=== PATIENT | female | born 1960 | race Caucasian/White ===

== ENCOUNTER → 2018-08-09 | Outpatient (CLI) | payer OTHER ==
[~2018-08-09] MED LIST: ALBU90OI INH; AMOCLA875 PO; AMOX500 PO; AZAT50 PO; AZIT250 PO; Acidophilus La100 GM; BUTASPCAF PO; Bactrim Ds Tab1 EACH PO; CARI350 PO; CEPH500 PO; CIPR500 PO; CLON1 PO; CODGUAEL PO; CYCL10 PO; Caltrate 600600 MG PO; DOC250 PO; DOXY100 PO; DULO60 PO; FLUT.05NI; GABA100 PO; HORMONE PATCH; HYDACE10B PO; HYDACE5; HYDACE5 PO; HYDR1TAB94; IBUHYD; IBUP400 PO; IBUP600 PO; IBUP800 PO; KETO10 PO; LAVAP17G; LIDO2L MM; LIDO2L TOP; LORA.5 PO; LORA1 PO; Lialda1.2 GM PO; METR250 PO; METR500 PO; MULVIT PO; NITR100CA PO; Naprosyn500 MG PO; Norco 10-325 T1 EACH PO; OMEP40CA12 PO; ONDA4ODT MM; OXYACE5T PO; OXYACE7.5T PO; OXYC1TAB11; PRED20 PO; PRODEXEL PO; PROM25 PO; PROP10 PO; Prednisone20 MG PO; RXOXYACE PO; SULTRIDS PO; SUMA25 PO; TRAM50 PO; Zofran Odt4 MG SL
== END | disposition home or self-care (01) ==
LOC: LAB SHORT 12:36 → LAB EV 12:36
DX: J02.9 Acute pharyngitis, unspecified (principal)
CPT/HCPCS: 87070

== ENCOUNTER 2019-02-03 06:00 | Day surgery (SDC) | payer OTHER ==
[~2019-02-03] VITALS: Ht 159 cm; Wt 65.0 kg
[~2019-02-03 06:00] MED LIST changes: +CLIMARA1 EACH TOP; +Hair, Skin & N1 EACH PO; +OMEPRAZOLE20 MG PO; +VITAMIN D31000 UNI1 PO
--- NOTE | 2019-02-03 07:02 | NUR ---
Ambulatory in Day Surgery History, Chart, Medications and Allergies reviewed before start of procedure.Patient confirms NPO status and agrees with scheduled surgery. PT DID NOT TAKE CHL SHOWER PREOP. Lungs clear T/O to Auscultation. Zhou Paws warming BLANKET applied.
--- NOTE | 2019-02-03 17:23 | NUR ---
SHIFT SUMMARY S/P A&P REPAIR TODAY. VSS. PT REPORTS MORE PRESSURE IN THE VAGINAL AREA R/T TO VAGINAL PACKING AND CATHETER THAN ACTUAL PAIN. KPAD OFFERED FOR COMFORT. PT HAS BEEN RECEIVING 2 NORCO, IV TORADOL, AND 1MG IV DILAUDID FOR PAIN. PT HAS AMBULATED HALLWAY WITH SBA AND IS IN THE CHAIR. SHE REPORTS MORE COMFORT BEING IN THE CHAIR THAN THE BED. MARIO PAD CHANGED X1 FOR SMALL VAGINAL BLEEDING. GONZALES INTACT WITH CLEAR YELLOW URINE. IVF INFUSING PER ORDERS. PT IMTIAZ REG DIET AND REPORTS PASSING GAS. PT USES CALL LIGHT APPROPRIATELY.
[2019-02-04 03:48] LABS: BASOPHILS ABSOLUTE AUTO 0.03 K/mm3 (0.00-0.23); BASOPHILS PERCENT AUTO 0 % (0-2); EOSINOPHILS ABSOLUTE AUTO 0.01 K/mm3 (0.00-0.68); EOSINOPHILS PERCENT AUTO 0 % (0-6); Hematocrit 34.7 % (33.0-51.0); Hemoglobin 11.6 g/dL (11.5-16.0); IMMATURE GRAN ABSOLUTE AUTO 0.03 K/mm3 (0.00-0.10); IMMATURE GRAN PERCENT AUTO 0 % (0-1); LYMPHOCYTES PERCENT AUTO 24 % (21-46); MONOCYTES ABSOLUTE AUTO 0.97 K/mm3 (0.16-1.47); MONOCYTES PERCENT AUTO 8 % (4-13); Mean Corpuscular HGB 31.1 pg (26.0-34.0); Mean Corpuscular HGB Conc 33.4 g/dL (31.5-36.5); Mean Corpuscular Volume 93 fL (80-100); Mean Platelet Volume 10.1 fL (9.1-12.4); NEUTROPHILS ABSOLUTE AUTO 8.05 K/mm3 (1.96-9.15); NEUTROPHILS PERCENT AUTO 68 % (41-73); Platelet Count 223 K/mm3 (150-400); RDW Coefficient Variation 12.7 % (11.7-14.2); RDW Standard Deviation 43.9 fL (35.1-46.3); Red Blood Cell Count 3.73 M/mm3 (3.80-5.20); White Blood Cell Count 11.89 K/mm3 (4.00-11.30)
--- NOTE | 2019-02-04 07:13 | NUR ---
SUMMARY: POD 1 A&P REPAIR BY DR. NICANOR STAFFORD. VSS, AFEBRILE, TOLERATING PO, PASSING GAS. PAIN WELL CONTROLLED WITH TORDAL, 2 TABS NORCO 10/325, AND 1MG DILAUDID X3 OR 4 THIS SHIFT. PT UP IN ROOM, TOLERATED WELL. CHRISTIAN RUBI'Ritchie THIS AM, AWAIT PT VOID.
[2019-02-04] MEDS ORDERED: Norco 10-325 T1 EACH PO (09:30)
[2019-02-04] MEDS ORDERED: DOCU100 PO (09:30)
[2019-02-04] MEDS ORDERED: IBU800 MG PO (09:31)
[2019-02-04] MEDS ORDERED: MIRALAX17 GM PO (09:35)
--- NOTE | 2019-02-04 10:43 | NUR ---
DISCHARGE PT EDUCATED ON AND RECEIVED PRINTED DC INSTRUCTIONS AND VERBALIZED AN UNDERSTANDING. PT PAIN MANAGED WITH ORAL NORCO. AMBULATING HALLWAY INDEPENDENTLY. PT PASSING GAS. VOIDING WITHOUT DIFFICULTY. IMTIAZ REG DIET. IV DC'D. PT GATHERING ALL PERSONAL BELONGINGS AND WAITING FOR SIG OTHER TO COME PICK HER UP TO TAKE HER HOME.
== END 2019-02-04 10:51 | disposition home or self-care (01) ==
LOC: ORSCMMR 06:00 → ORD 07:30 → ORSCMMR 07:30 → SURS 09:43 → ORSCMMR 02-04 10:51 → ORD 03-03 09:00
PROVIDERS: Obstetrics & Gynecology
PROC: 0JQC0ZZ Repair Pelvic Region Subcutaneous Tissue and Fascia, Open Approach (ICD-10-PCS; principal; 2019-02-03 07:30)
DX: N81.11 Cystocele, midline (principal); N81.6 Rectocele; M79.7 Fibromyalgia; Z79.899 Other long term (current) drug therapy
CPT/HCPCS: 36415; 85025; A9270-GY; J0690; J1100; J1170; J1885; J2250; J2370; J2405; J2704; J2765; J3010; J7120

== ENCOUNTER → 2019-02-18 | Outpatient (CLI) | payer OTHER ==
[~2019-02-18] MED LIST changes: +DOCU100 PO; +IBU800 MG PO; +MIRALAX17 GM PO
[2019-02-19 06:43] LABS: Candida species (DNA Probe) Negative (NEGATIVE); G. vaginalis (DNA Probe) Positive (NEGATIVE); T. vaginalis (DNA Probe) Negative (NEGATIVE)
== END | disposition home or self-care (01) ==
LOC: LAB SHORT 15:20 → LAB 15:20
PROVIDERS: Obstetrics & Gynecology
DX: N76.0 Acute vaginitis (principal)
CPT/HCPCS: 87480; 87510; 87660

== ENCOUNTER → 2019-03-11 | Outpatient (CLI) | payer OTHER ==
[2019-03-11 15:34] LABS: BASOPHILS ABSOLUTE AUTO 0.05 K/mm3 (0.00-0.23); BASOPHILS PERCENT AUTO 1 % (0-2); EOSINOPHILS ABSOLUTE AUTO 0.19 K/mm3 (0.00-0.68); EOSINOPHILS PERCENT AUTO 3 % (0-6); Hematocrit 41.1 % (33.0-51.0); Hemoglobin 13.7 g/dL (11.5-16.0); IMMATURE GRAN ABSOLUTE AUTO 0.01 K/mm3 (0.00-0.10); IMMATURE GRAN PERCENT AUTO 0 % (0-1); LYMPHOCYTES PERCENT AUTO 38 % (21-46); MONOCYTES ABSOLUTE AUTO 0.49 K/mm3 (0.16-1.47); MONOCYTES PERCENT AUTO 7 % (4-13); Mean Corpuscular HGB Conc 33.3 g/dL (31.5-36.5); Mean Corpuscular Volume 93 fL (80-100); NEUTROPHILS ABSOLUTE AUTO 3.38 K/mm3 (1.96-9.15); NEUTROPHILS PERCENT AUTO 51 % (41-73); Platelet Count 246 K/mm3 (150-400); RDW Coefficient Variation 12.8 % (11.7-14.2); RDW Standard Deviation 43.7 fL (35.1-46.3); Red Blood Cell Count 4.42 M/mm3 (3.80-5.20); White Blood Cell Count 6.62 K/mm3 (4.00-11.30)
[2019-03-11 15:57] LABS: Alanine Aminotransfer (ALT/SGP 48 U/L (12-78); Albumin, Blood 3.6 g/dL (3.4-5.0); Alk Phos 120 U/L (40-126); Anion Gap 8 mmol/L (6-16); Aspartate Aminotrans (AST/SGOT 41 U/L (12-37); Bilirubin, Total 0.2 mg/dL (0.1-1.0); Blood Urea Nitrogen 7 mg/dL (8-24); Bun/Creatinine Ratio 10.3 (12.0-20.0); CO2, Blood 28 mmol/L (21-32); Calcium, Blood 8.4 mg/dL (8.5-10.1); Chloride, Blood 103 mmol/L (98-108); Creatinine, Blood 0.68 mg/dL (0.40-1.00); Globulin, Blood 3.5 g/dL (2.2-4.0); Glomerular Filtration Rate >60 (60-); Glucose, Blood 103 mg/dL (70-99); Potassium, Blood 3.7 mmol/L (3.5-5.5); Sodium, Blood 139 mmol/L (136-145); Total Protein, Blood 7.1 g/dL (6.4-8.2)
== END | disposition home or self-care (01) ==
LOC: LAB EV 15:30 → LAB SHORT 15:30
PROVIDERS: Physician Assistant
DX: R07.9 Chest pain, unspecified (principal); N39.0 Urinary tract infection, site not specified
CPT/HCPCS: 80053; 85025; 85379; 87086

== ENCOUNTER → 2019-04-08 | Outpatient (CLI) | payer OTHER ==
[2019-04-08 18:31] LABS: Bilirubin, Urine Neg (Neg); Blood, Urine Neg (Neg); Glucose Qualitative, Urine Neg (Neg); Ketones, Urine Neg (Neg); Leukocyte Esterase, Urine Neg (Neg); Nitrite, Urine Neg (Neg); Protein, Urine Neg (Neg); Urobilinogen, Urine NORM (Normal)
[2019-04-08 18:47] LABS: Appearance, Urine Clear (Clear); Color, Urine Yellow (P-Yellow)
[2019-04-09 06:22] LABS: Stool Occult Bld Immuno 1 Negative (NEGATIVE)
== END | disposition home or self-care (01) ==
LOC: LAB 06:00 → LAB SHORT 06:00
PROVIDERS: Internal Medicine
DX: Z12.11 Encounter for screening for malignant neoplasm of colon (principal); N39.0 Urinary tract infection, site not specified; R53.81 Other malaise
CPT/HCPCS: 81003; G0328

== ENCOUNTER → 2019-04-11 | Outpatient (CLI) | payer OTHER ==
[~2019-04-11] MED LIST changes: +Bentyl20 MG PO; +ESTRADIOL1 EAC1 TD; +MIRALAX17 GM; +MIRT15; +Multiple Vitam1 EACH PO
[2019-04-15 11:07] LABS: COMMENT: Comment: (.); M-SPIKE, % Not Observed % (Not Observed); PROTEIN,TOTAL,URINE 8.1 mg/dL (Not Estab.)
== END | disposition home or self-care (01) ==
LOC: LAB SHORT 08:50 → LAB 08:50
PROVIDERS: Internal Medicine
DX: Z00.01 Encounter for general adult medical examination with abnormal findings (principal)
CPT/HCPCS: 81050; 84156; 84166

== ENCOUNTER 2019-05-08 08:07 | Day surgery (SDC) | payer OTHER ==
[~2019-05-08] VITALS: Ht 157.5 cm; Wt 63.6 kg
--- NOTE | 2019-05-08 08:59 | NUR ---
05/08/19 0859 Claudia Regalado 1 TRY HAND RIGHT BLEW 2 TRY HAND RIGHT GOOD
--- NOTE | 2019-05-08 10:31 | NUR ---
05/08/19 1031 Jen Ash .5NS WITH 1CC SPOT MARKER INJECTED INTO SIGMOID COLON
--- NOTE | 2019-05-08 10:55 | NUR ---
05/08/19 1055 Jen Ash PT TEARFUL, COMPLAINING OF 10/10 HEADACHE UPON ARRIVAL TO SDU. PT STATES "IT'S LIKE THE WORST HEADACHE OF HER LIFE." 50MCG FENTANYL AND 30MG TORADOL GIVEN IV PER DR LOCKWOOD. PT STATES RELIEF POST MEDICATION INTERVENTION. PT STATES HEADACHE 6/10. PT CHATTING, RESTING IN BED AT THIS TIME. VSS.
== END 2019-05-08 11:14 | disposition home or self-care (01) ==
LOC: ORSCSDS 08:07
PROVIDERS: Student in an Organized Health Care Education/Training Program
PROC: 0DBN8ZX Excision of Sigmoid Colon, Via Natural or Artificial Opening Endoscopic, Diagnostic (ICD-10-PCS; principal; 2019-05-08 09:30)
PROC: 0DBL8ZX Excision of Transverse Colon, Via Natural or Artificial Opening Endoscopic, Diagnostic (ICD-10-PCS; principal; 2019-05-08 09:30)
DX: R10.9 Unspecified abdominal pain (principal); K52.9 Noninfective gastroenteritis and colitis, unspecified; D12.3 Benign neoplasm of transverse colon; K57.30 Diverticulosis of large intestine without perforation or abscess without bleeding; K64.8 Other hemorrhoids; K64.4 Residual hemorrhoidal skin tags; Z80.0 Family history of malignant neoplasm of digestive organs; E78.5 Hyperlipidemia, unspecified; Z79.899 Other long term (current) drug therapy
CPT/HCPCS: 88305; J1885; J2704; J3010; J7120

== ENCOUNTER → 2020-03-26 | Outpatient (CLI) | payer OTHER | END | disposition home or self-care (01) | LOC: LAB SHORT 17:39 → LAB EV 17:39 | DX: R53.83 Other fatigue (principal); Z20.828 Contact with and (suspected) exposure to other viral communicable diseases | CPT/HCPCS: 87086; U0003 ==

== ENCOUNTER 2020-07-07 17:45 | Emergency (ER) | payer OTHER ==
[~2020-07-07] VITALS: Ht 157.5 cm; Wt 69.0 kg
[2020-07-07 18:17] LABS: BASOPHILS ABSOLUTE AUTO 0.07 K/mm3 (0.00-0.23); BASOPHILS PERCENT AUTO 1 % (0-2); EOSINOPHILS PERCENT AUTO 1 % (0-6); Hematocrit 43.1 % (33.0-51.0); Hemoglobin 14.2 g/dL (11.5-16.0); IMMATURE GRAN ABSOLUTE AUTO 0.01 K/mm3 (0.00-0.10); IMMATURE GRAN PERCENT AUTO 0 % (0-1); LYMPHOCYTES ABSOLUTE AUTO 3.35 K/mm3 (0.84-5.20); LYMPHOCYTES PERCENT AUTO 39 % (21-46); MONOCYTES ABSOLUTE AUTO 0.67 K/mm3 (0.16-1.47); MONOCYTES PERCENT AUTO 8 % (4-13); Mean Corpuscular HGB 30.5 pg (26.0-34.0); Mean Corpuscular HGB Conc 32.9 g/dL (31.5-36.5); Mean Corpuscular Volume 93 fL (80-100); Mean Platelet Volume 9.5 fL (9.1-12.4); NEUTROPHILS PERCENT AUTO 52 % (41-73); Platelet Count 309 K/mm3 (150-400); RDW Coefficient Variation 12.5 % (11.7-14.2); RDW Standard Deviation 42.4 fL (35.1-46.3); Red Blood Cell Count 4.66 M/mm3 (3.80-5.20)
[2020-07-07 18:25] LABS: Source, Urine Voided
[2020-07-07 18:35] LABS: Appearance, Urine Hazy (Clear); Bilirubin, Urine Neg (Neg); Blood, Urine Neg (Neg); Color, Urine Yellow (P-Yellow); Glucose Qualitative, Urine Neg (Neg); Ketones, Urine Neg (Neg); Leukocyte Esterase, Urine Neg (Neg); Nitrite, Urine Neg (Neg); Protein, Urine Neg (Neg); Specific Gravity, Urine 1.015 (1.003-1.022); Urobilinogen, Urine NORM (Normal)
[2020-07-07 18:36] LABS: Alanine Aminotransfer (ALT/SGP 22 U/L (12-78); Albumin/Globulin Ratio 1.2 (0.8-1.8); Alk Phos 110 U/L (50-136); Anion Gap 5 mmol/L (6-16); Aspartate Aminotrans (AST/SGOT 17 U/L (12-37); Bilirubin, Total 0.3 mg/dL (0.1-1.0); Blood Urea Nitrogen 13 mg/dL (8-24); Bun/Creatinine Ratio 19.5 (12.0-20.0); CO2, Blood 28 mmol/L (21-32); Calcium, Blood 8.5 mg/dL (8.5-10.1); Chloride, Blood 104 mmol/L (98-108); Creatinine, Blood 0.67 mg/dL (0.40-1.00); Globulin, Blood 3.2 g/dL (2.2-4.0); Glomerular Filtration Rate >60 (60-); Glucose, Blood 83 mg/dL (70-99); Potassium, Blood 3.5 mmol/L (3.5-5.5); Sodium, Blood 137 mmol/L (136-145); Total Protein, Blood 7.2 g/dL (6.4-8.2); Troponin I <0.015 ng/mL (0.000-0.040)
[2020-07-07 18:47] LABS: Bacteria Mod /hpf; Red Blood Cells, Urine 0-2 /hpf (0-2); Squamous Epithelial Cells Mod /hpf (Few)
== END 2020-07-07 20:08 | disposition home or self-care (01) ==
LOC: ER 17:45
PROVIDERS: Emergency Medicine; Physician Assistant
DX: R07.2 Precordial pain (principal); R07.9 Chest pain, unspecified; Z87.891 Personal history of nicotine dependence
CPT/HCPCS: 36415; 71046; 80053; 81001; 84484; 85025; 85379; 87086; 93005; 93010; 99284-25

== ENCOUNTER 2020-08-12 18:19 | Emergency (ER) | payer OTHER ==
[~2020-08-12] VITALS: Ht 157.5 cm; Wt 65.8 kg
[2020-08-12 19:08] LABS: BASOPHILS ABSOLUTE AUTO 0.03 K/mm3 (0.00-0.23); BASOPHILS PERCENT AUTO 0 % (0-2); EOSINOPHILS ABSOLUTE AUTO 0.05 K/mm3 (0.00-0.68); EOSINOPHILS PERCENT AUTO 1 % (0-6); IMMATURE GRAN ABSOLUTE AUTO 0.02 K/mm3 (0.00-0.10); IMMATURE GRAN PERCENT AUTO 0 % (0-1); LYMPHOCYTES ABSOLUTE AUTO 2.21 K/mm3 (0.84-5.20); LYMPHOCYTES PERCENT AUTO 30 % (21-46); MONOCYTES ABSOLUTE AUTO 0.56 K/mm3 (0.16-1.47); MONOCYTES PERCENT AUTO 8 % (4-13); Mean Corpuscular HGB 30.2 pg (26.0-34.0); Mean Corpuscular HGB Conc 33.3 g/dL (31.5-36.5); Mean Corpuscular Volume 91 fL (80-100); Mean Platelet Volume 9.8 fL (9.1-12.4); NEUTROPHILS ABSOLUTE AUTO 4.46 K/mm3 (1.96-9.15); NEUTROPHILS PERCENT AUTO 61 % (41-73); Platelet Count 256 K/mm3 (150-400); RDW Coefficient Variation 12.6 % (11.7-14.2); RDW Standard Deviation 41.3 fL (35.1-46.3); Red Blood Cell Count 4.63 M/mm3 (3.80-5.20); White Blood Cell Count 7.33 K/mm3 (4.00-11.30)
[2020-08-12 19:27] LABS: Alanine Aminotransfer (ALT/SGP 17 U/L (12-78); Albumin/Globulin Ratio 1.2 (0.8-1.8); Alk Phos 93 U/L (50-136); Anion Gap 6 mmol/L (6-16); Aspartate Aminotrans (AST/SGOT 15 U/L (12-37); Bilirubin, Total 0.3 mg/dL (0.1-1.0); Blood Urea Nitrogen 10 mg/dL (8-24); Bun/Creatinine Ratio 13.8 (12.0-20.0); CO2, Blood 28 mmol/L (21-32); Calcium, Blood 8.8 mg/dL (8.5-10.1); Chloride, Blood 104 mmol/L (98-108); Creatinine, Blood 0.73 mg/dL (0.40-1.00); Globulin, Blood 3.4 g/dL (2.2-4.0); Glomerular Filtration Rate >60 (60-); Glucose, Blood 81 mg/dL (70-99); Potassium, Blood 3.8 mmol/L (3.5-5.5); Sodium, Blood 138 mmol/L (136-145); Total Protein, Blood 7.4 g/dL (6.4-8.2)
[2020-08-12 19:44] LABS: Source, Urine Clean Catch
[2020-08-12 19:50] LABS: Appearance, Urine Clear (Clear); Bilirubin, Urine Neg (Neg); Blood, Urine 2+ (Neg); Color, Urine Amber (P-Yellow); Glucose Qualitative, Urine Neg (Neg); Ketones, Urine 3+ (Neg); Leukocyte Esterase, Urine 1+ (Neg); Nitrite, Urine Neg (Neg); Protein, Urine 1+ (Neg); Specific Gravity, Urine 1.025 (1.003-1.022); Urobilinogen, Urine NORM (Normal)
[2020-08-12 19:59] LABS: Bacteria Many /hpf; Mucus Mod (0-Heavy); Red Blood Cells, Urine 0-2 /hpf (0-2); Squamous Epithelial Cells Mod /hpf (Few)
[2020-08-12] MEDS ORDERED: CEPH500 PO (21:46)
== END 2020-08-12 21:49 | disposition home or self-care (01) ==
LOC: ER 18:19
PROVIDERS: Physician Assistant
DX: N39.0 Urinary tract infection, site not specified (principal); Z79.899 Other long term (current) drug therapy; Z87.891 Personal history of nicotine dependence
CPT/HCPCS: 36415; 74176; 80053; 81001; 83690; 85025; 87086; 99284-25; A9270

== ENCOUNTER → 2021-08-23 | Outpatient (CLI) | payer OTHER ==
[2021-08-23 14:13] LABS: Source, Urine Clean Catch
[2021-08-23 15:33] LABS: Bilirubin, Urine Neg (Neg); Blood, Urine Neg (Neg); Glucose Qualitative, Urine Neg (Neg); Ketones, Urine Neg (Neg); Leukocyte Esterase, Urine Neg (Neg); Nitrite, Urine Neg (Neg); Protein, Urine 1+ (Neg); Urobilinogen, Urine NORM (Normal)
[2021-08-23 15:35] LABS: Appearance, Urine Hazy (Clear); Color, Urine Pale Yellow (P-Yellow); Red Blood Cells, Urine 0-2 /hpf (0-2); Squamous Epithelial Cells Rare /hpf (Few); White Blood Cells, Urine 0-2 /hpf (0-5)
[2021-08-23 15:36] LABS: Bacteria Few /hpf; Mucus Mod (0-Heavy)
== END | disposition home or self-care (01) ==
LOC: LAB SHORT 14:10
PROVIDERS: Obstetrics & Gynecology
DX: R32 Unspecified urinary incontinence (principal)
CPT/HCPCS: 81001; 87086

== ENCOUNTER 2021-08-25 11:55 | Emergency (ER) | payer OTHER ==
[~2021-08-25] VITALS: Ht 157.5 cm; Wt 63.0 kg
== END 2021-08-25 15:32 | disposition home or self-care (01) ==
LOC: ER 11:55
DX: H53.9 Unspecified visual disturbance (principal); Z79.899 Other long term (current) drug therapy; M19.90 Unspecified osteoarthritis, unspecified site; Z87.891 Personal history of nicotine dependence
CPT/HCPCS: 99283

== ENCOUNTER → 2021-10-06 | Outpatient (CLI) | payer OTHER ==
[2021-10-06 19:12] LABS: U Amphetamine Screen Not Detected; U Barbituate Screen Not Detected; U Benzodiazapine Screen Not Detected; U Buprenorphine Screen Not Detected; U Cannabinoids Screen Not Detected; U Cocaine Screen Not Detected; U Methadone Screen Not Detected; U Methamphetamine Screen Not Detected; U Opiates Screen Not Detected; U Oxycodone Screen DETECTED; U Phencyclidine Screen Not Detected; U Propoxyphene Screen Not Detected
== END | disposition home or self-care (01) ==
LOC: LAB SHORT 13:25 → LAB 14:30
PROVIDERS: Internal Medicine
DX: Z51.81 Encounter for therapeutic drug level monitoring (principal); Z79.891 Long term (current) use of opiate analgesic

== ENCOUNTER 2022-01-12 13:14 | Emergency (ER) | payer OTHER ==
[~2022-01-12] VITALS: Ht 157.5 cm; Wt 72.6 kg
== END 2022-01-12 16:04 | disposition home or self-care (01) ==
LOC: ER 13:14
DX: G89.18 Other acute postprocedural pain (principal); M79.645 Pain in left finger(s); M25.532 Pain in left wrist; Z87.891 Personal history of nicotine dependence; Z98.890 Other specified postprocedural states; Z79.899 Other long term (current) drug therapy; Z79.818 Long term (current) use of other agents affecting estrogen receptors and estrogen levels
CPT/HCPCS: 99282

== ENCOUNTER → 2023-03-12 | Outpatient (CLI) | payer OTHER ==
[2023-03-12 13:34] LABS: U Amphetamine Screen Not Detected; U Barbituate Screen Not Detected; U Benzodiazapine Screen Not Detected; U Buprenorphine Screen Not Detected; U Cannabinoids Screen Not Detected; U Cocaine Screen Not Detected; U Methadone Screen Not Detected; U Methamphetamine Screen Not Detected; U Opiates Screen Not Detected; U Oxycodone Screen DETECTED; U Phencyclidine Screen Not Detected; U Propoxyphene Screen Not Detected
== END | disposition home or self-care (01) ==
LOC: LAB SHORT 09:01 → LAB 09:01 → EDSTATUS 02-16 12:55 → LAB FUT 02-16 12:55
PROVIDERS: Internal Medicine
DX: Z51.81 Encounter for therapeutic drug level monitoring (principal); Z79.891 Long term (current) use of opiate analgesic

== ENCOUNTER 2023-09-02 10:03 | Emergency (ER) | payer OTHER ==
[~2023-09-02] VITALS: Ht 157.5 cm; Wt 70.6 kg
[2023-09-02 10:43] LABS: BASOPHILS ABSOLUTE AUTO 0.04 K/mm3 (0.00-0.23); BASOPHILS PERCENT AUTO 1 % (0-2); EOSINOPHILS ABSOLUTE AUTO 0.16 K/mm3 (0.00-0.68); EOSINOPHILS PERCENT AUTO 3 % (0-6); Hematocrit 39.7 % (33.0-51.0); Hemoglobin 13.2 g/dL (11.5-16.0); IMMATURE GRAN ABSOLUTE AUTO 0.01 K/mm3 (0.00-0.10); IMMATURE GRAN PERCENT AUTO 0 % (0-1); LYMPHOCYTES ABSOLUTE AUTO 1.53 K/mm3 (0.84-5.20); LYMPHOCYTES PERCENT AUTO 31 % (21-46); MONOCYTES ABSOLUTE AUTO 0.41 K/mm3 (0.16-1.47); MONOCYTES PERCENT AUTO 8 % (4-13); Mean Corpuscular HGB 30.3 pg (26.0-34.0); Mean Corpuscular HGB Conc 33.2 g/dL (31.5-36.5); Mean Corpuscular Volume 91 fL (80-100); Mean Platelet Volume 9.6 fL (9.1-12.4); NEUTROPHILS ABSOLUTE AUTO 2.79 K/mm3 (1.96-9.15); NEUTROPHILS PERCENT AUTO 57 % (41-73); Platelet Count 264 K/mm3 (150-400); RDW Coefficient Variation 13.3 % (11.7-14.2); RDW Standard Deviation 44.9 fL (35.1-46.3); Red Blood Cell Count 4.36 M/mm3 (3.80-5.20); White Blood Cell Count 4.94 K/mm3 (4.00-11.30)
[2023-09-02 10:58] LABS: Source, Urine Clean Catch
[2023-09-02 11:01] LABS: Appearance, Urine Hazy (Clear); Bilirubin, Urine Neg (Neg); Blood, Urine Neg (Neg); Color, Urine Yellow (P-Yellow); Glucose Qualitative, Urine Neg (Neg); Ketones, Urine Neg (Neg); Leukocyte Esterase, Urine 1+ (Neg); Nitrite, Urine Neg (Neg); Protein, Urine Neg (Neg); Specific Gravity, Urine 1.015 (1.003-1.022); Urobilinogen, Urine NORM (Normal); pH, Urine 6.5 (5.0-8.0)
[2023-09-02 11:10] LABS: Bacteria Few /hpf; Mucus Light (0-Heavy); Squamous Epithelial Cells Many /hpf (Few); Transitional Epithelial Cells Rare /hpf (0-Rare)
[2023-09-02] MEDS ORDERED: Percocet 10-321 EACH PO (11:10)
[2023-09-02] MEDS ORDERED: DULO60 (11:11)
[2023-09-02] MEDS ORDERED: DULO30 (11:11)
[2023-09-02 11:13] LABS: Albumin, Blood 3.6 g/dL (3.4-5.0); Albumin/Globulin Ratio 1.1 (0.8-1.8); Bilirubin, Total 0.5 mg/dL (0.1-1.0); Bun/Creatinine Ratio 16.5 (12.0-20.0); Calcium, Blood 8.8 mg/dL (8.5-10.1); Creatinine, Blood 0.67 mg/dL (0.40-1.00); Globulin, Blood 3.3 g/dL (2.2-4.0); Potassium, Blood 3.7 mmol/L (3.5-5.5); Total Protein, Blood 6.9 g/dL (6.4-8.2)
[2023-09-02] MEDS ORDERED: Ondansetron HCl 2 MG / ML 2ML Vial IV ONE (11:40)
[2023-09-02] MEDS ORDERED: FentaNYL Citrate 50 MCG/ML 2 ML Injection IV ONE ×2 (11:40→12:55)
[2023-09-02] MEDS ORDERED: NS 1,000 ML IV SCH (11:40)
[2023-09-02] MEDS ORDERED: OMEP20ER PO (12:08)
[2023-09-02] MEDS ORDERED: ONDA4ODT MM (12:08)
[2023-09-02 13:00] VITALS: BP 111/56
== END 2023-09-02 13:06 | disposition home or self-care (01) ==
LOC: ER 10:03
PROVIDERS: Physician Assistant
DX: R10.13 Epigastric pain (principal); Z79.899 Other long term (current) drug therapy; M19.90 Unspecified osteoarthritis, unspecified site; Z87.891 Personal history of nicotine dependence
CPT/HCPCS: 76705; 80053; 81001; 83690; 85025; 87086; 96361; 96374; 96375; 96376; 99284-25; J2405; J3010; J7030

== ENCOUNTER 2024-07-07 12:03 | Emergency (ER) | payer OTHER ==
[~2024-07-07] VITALS: Ht 157.5 cm; Wt 71.2 kg
[~2024-07-07 12:03] MED LIST changes: +DULO30; +DULO60; +OMEP20ER PO; +Percocet 10-321 EACH PO
[2024-07-07 12:58] VITALS: BP 125/68
[2024-07-07 13:37] LABS: BASOPHILS ABSOLUTE AUTO 0.05 K/mm3 (0.00-0.23); BASOPHILS PERCENT AUTO 1 % (0-2); EOSINOPHILS ABSOLUTE AUTO 0.32 K/mm3 (0.00-0.68); EOSINOPHILS PERCENT AUTO 6 % (0-6); Hematocrit 40.3 % (33.0-51.0); Hemoglobin 12.9 g/dL (11.5-16.0); IMMATURE GRAN ABSOLUTE AUTO 0.01 K/mm3 (0.00-0.10); IMMATURE GRAN PERCENT AUTO 0 % (0-1); LYMPHOCYTES PERCENT AUTO 37 % (21-46); MONOCYTES ABSOLUTE AUTO 0.53 K/mm3 (0.16-1.47); MONOCYTES PERCENT AUTO 9 % (4-13); Mean Corpuscular HGB 29.5 pg (26.0-34.0); Mean Corpuscular Volume 92 fL (80-100); Mean Platelet Volume 9.5 fL (9.1-12.4); NEUTROPHILS ABSOLUTE AUTO 2.65 K/mm3 (1.96-9.15); NEUTROPHILS PERCENT AUTO 47 % (41-73); Platelet Count 280 K/mm3 (150-400); RDW Coefficient Variation 13.8 % (11.7-14.2); RDW Standard Deviation 47.3 fL (35.1-46.3); Red Blood Cell Count 4.37 M/mm3 (3.80-5.20); White Blood Cell Count 5.66 K/mm3 (4.00-11.30)
[2024-07-07 14:00] LABS: Albumin, Blood 3.5 g/dL (3.4-5.0); Albumin/Globulin Ratio 1.1 (0.8-1.8); Bilirubin, Total 0.4 mg/dL (0.1-1.0); Bun/Creatinine Ratio 17.9 (12.0-20.0); Calcium, Blood 8.4 mg/dL (8.5-10.1); Creatinine, Blood 0.62 mg/dL (0.40-1.00); Globulin, Blood 3.3 g/dL (2.2-4.0); Potassium, Blood 4.3 mmol/L (3.5-5.5); Total Protein, Blood 6.8 g/dL (6.4-8.2)
[2024-07-07] MEDS ORDERED: AMOCLA875 PO (15:28)
== END 2024-07-07 15:31 | disposition home or self-care (01) ==
LOC: ER 12:03
PROVIDERS: Physician Assistant
DX: K57.33 Diverticulitis of large intestine without perforation or abscess with bleeding (principal); K50.90 Crohn's disease, unspecified, without complications; Z87.891 Personal history of nicotine dependence; Z79.899 Other long term (current) drug therapy
CPT/HCPCS: 74177; 80053; 85025; 99284-25; Q9967